=== PATIENT | female | born 1990 | race Caucasian/White ===

== ENCOUNTER 2023-07-21 09:44 | Outpatient (CLI) | payer OTHER, SELFPAY | END 2023-07-21 09:45 | disposition home or self-care (01) | LOC: NFLDREF 07-25 11:32 | PROVIDERS: Visit Provider Physician Assistant | DX: Z31.69 Encounter for other general counseling and advice on procreation (principal) | CPT/HCPCS: 82670; 83001; 83002; 84146; 84443 ==

== ENCOUNTER 2023-07-26 08:53 | Outpatient (CLI) | payer OTHER, SELFPAY ==
--- NOTE | 2023-07-26 09:15 | CRLHL7_ITS ---
For Patients: As a result of the Century Cures Act, medical imaging exams and procedure reports are released immediately into your electronic medical record. You may view this report before your referring provider. If you have questions, please contact your health care provider. Indication: INFERTILITY Technique: Hysterosalpingogram. Fluoroscopic time 31 seconds. IMPRESSION: Normal patency of the endometrial canal and fallopian tubes with spillage into the peritoneal cavity. Normal exam. Dictated by Chip Barba MD @ 07/26/2023 10:05:45 AM (Electronically Signed)
--- NOTE | 2023-07-26 10:45 | W.PM.GYNPROC ---
Procedure Note Time Seen by Provider: 09:45 Date of procedure: 07/26/23 Pre-op diagnosis: Primary infertility Post-op diagnosis: same Procedure: Hysterosalpingogram Anesthesia: none Complications: None Surgeon: April Pimentel MD Estimated blood loss (mL): 0 IV fluids (mL): 0 Pathology: none sent Condition: stable Disposition: other (Home ) Procedure Description: DATE: 07/26/2023 PREPROCEDURE DIAGNOSIS: Primary Infertility POSTPROCEDURE DIAGNOSIS: 1. Infertility 2. Patent fallopian tubes bilaterally. Normal endometrial cavity contour NAME OF PROCEDURE: Hysterosalpingogram. ANESTHESIA: None. COMPLICATIONS: None. PROCEDURE: UPT negative. After obtaining verbal consent, the patient was placed in the dorsal lithotomy position on the x-ray table. An open-sided bivalve speculum was introduced into the vagina and the cervix easily visualized. The cervix and vagina were then prepped with Betadine. The anterior lip of the cervix was grasped with a single-tooth tenaculum for traction. Os binder/cervical dilator used: No. A balloon tipped double-lumen catheter was then gently inserted through the cervical opening into the uterine cavity to the level of the fundus. The balloon was insufflated with 3 mL of air. The tenaculum and speculum were removed. The patient was repositioned in the supine position, covered, and the radiologist was called to the room. A hysterosalpingogram was then performed. A total of 20 cc of Optiray 300 water soluble contrast dye was injected through the double-lumen catheter under moderate pressure. There was immediate fill of both fallopian tubes and free spillage of dye on both sides. Balloon was deflated more dye was injected and was immediate fill of the uterine cavity to the cornua. The deflated balloon catheter was removed. The patient tolerated the procedure well, though she did have moderate cramping discomfort during and just after the procedure. She was discharged to home in stable condition and make an appointment with her physician to review all of her lab results and procedure results.
== END 2023-07-26 08:54 | disposition home or self-care (01) ==
LOC: RAD 08:53
PROVIDERS: Visit Provider Obstetrics & Gynecology
DX: Z31.69 Encounter for other general counseling and advice on procreation (principal); N97.9 Female infertility, unspecified
CPT/HCPCS: 58340; 74740; A4649; Q9967

== ENCOUNTER 2023-08-09 16:14 | Outpatient (CLI) | payer OTHER, SELFPAY | END 2023-08-09 16:15 | disposition home or self-care (01) | LOC: NFLDREF 08-15 05:32 | PROVIDERS: Visit Provider Physician Assistant | DX: N97.9 Female infertility, unspecified (principal) | CPT/HCPCS: 84144 ==

== ENCOUNTER 2023-09-17 15:47 | Outpatient (CLI) | payer OTHER, SELFPAY ==
--- NOTE | 2023-09-17 16:00 | CRLHL7_ITS ---
For Patients: As a result of the Century Cures Act, medical imaging exams and procedure reports are released immediately into your electronic medical record. You may view this report before your referring provider. If you have questions, please contact your health care provider. INDICATION: Pro creative management TECHNIQUE: Real-time cruz-scale imaging of the pelvis was performed. FINDINGS: The uterus measures 8.5 x 3.4 x 4.2 centimeters the endometrium measures 8 millimeters. The right ovary measures 2.9 x 1.9 x 2.3 centimeters left ovary measures 3.7 x 1.9 x 1.5 centimeters dominant follicle in the right ovary measuring 1.5 centimeters. Normal blood flow to both ovaries. Minimal free fluid in the pelvic cul-de-sac. IMPRESSION: Unremarkable pelvic ultrasound. Dominant follicle in the right ovary measures 1.5 centimeters. Dictated by Sofia Hughes MD @ 09/20/2023 6:36:08 AM (Electronically Signed)
== END 2023-09-17 15:48 | disposition home or self-care (01) ==
LOC: US 15:48
PROVIDERS: Visit Provider Physician Assistant
DX: Z31.9 Encounter for procreative management, unspecified (principal); N83.201 Unspecified ovarian cyst, right side
CPT/HCPCS: 76830; 76856

== ENCOUNTER 2024-01-11 10:09 | Outpatient (CLI) | payer OTHER, SELFPAY | END 2024-01-11 10:10 | disposition home or self-care (01) | LOC: NFLDREF 10:10 | PROVIDERS: Visit Provider Registered Nurse | DX: Z34.91 Encounter for supervision of normal pregnancy, unspecified, first trimester (principal); O20.9 Hemorrhage in early pregnancy, unspecified; Z3A.10 10 weeks gestation of pregnancy | CPT/HCPCS: 76817; 87086 ==

== ENCOUNTER 2024-03-28 10:13 | Outpatient (CLI) | payer OTHER, SELFPAY ==
--- NOTE | 2024-03-28 10:15 | CRLHL7_ITS ---
For Patients: As a result of the Century Cures Act, medical imaging exams and procedure reports are released immediately into your electronic medical record. You may view this report before your referring provider. If you have questions, please contact your health care provider. INDICATION: Evaluate anatomy. COMPARISON: 01/11/2024 TECHNIQUE: Real time cruz scale imaging of the fetus was performed as well as color Doppler analysis of the umbilical vessels. FINDINGS: Sonographic imaging demonstrates a single living intrauterine gestation. Fetus demonstrates a regular cardiac rate of 150 beats per minute. Fetus has a vertex position. The placenta lies right posterior without evidence of placenta previa. Amniotic fluid volume appears normal. Single deepest vertical pocket: 4.4 cm. The cervix is closed and measures 3.5 cm in length. The composite ultrasound gestational age is calculated at 21 weeks 6 days with an estimated sonographic due date of 08/02/2024. The estimated weight is 442 grams which lies at the 50th %. The following biometric measurements were obtained: Biparietal diameter: 5.3 cm/22 weeks 1 day 70th% Head circumference: 19.1 cm/21 weeks 2 days 29th% Abdominal circumference: 17.0 cm/22 weeks 0 days 56th% Femur length: 3.6 cm/21 weeks 3 days 33rd% The HC/AC ratio measures: 1.12 range (1.06-1.23) On anatomic survey, there is a normal appearance of the cerebral ventricles, cavum septi pellucidi, cisterna magna and cerebellum. The nose, lips, and facial profile appear normal. The cervical, thoracic and lumbar spine are well visualized and appear normal. There is a normal four-chamber heart view and the left and right ventricular outflow tracts appear normal. The diaphragm and stomach appear normal. The kidneys and bladder also appear normal. There is a normal three-vessel cord and cord insertion site. The four extremities appear normal. IMPRESSION: Normal OB ultrasound exam with concordance of clinical and sonographic dating. No intrinsic abnormalities noted on anatomic survey. Dictated by Chip Barba MD @ 03/28/2024 3:22:05 PM (Electronically Signed)
== END 2024-03-28 10:14 | disposition home or self-care (01) ==
LOC: US 10:14
PROVIDERS: Visit Provider Obstetrics & Gynecology
DX: Z34.92 Encounter for supervision of normal pregnancy, unspecified, second trimester (principal); Z3A.21 21 weeks gestation of pregnancy
CPT/HCPCS: 76805

== ENCOUNTER 2024-05-16 10:40 | Outpatient (CLI) | payer OTHER, SELFPAY | END 2024-05-16 10:41 | disposition home or self-care (01) | LOC: NFLDREF 05-22 06:28 | PROVIDERS: Visit Provider Obstetrics & Gynecology | DX: Z34.93 Encounter for supervision of normal pregnancy, unspecified, third trimester (principal); Z3A.28 28 weeks gestation of pregnancy | CPT/HCPCS: 86592 ==

== ENCOUNTER 2024-07-10 09:30 | Outpatient (CLI) | payer OTHER, SELFPAY | END 2024-07-10 09:31 | disposition home or self-care (01) | LOC: NFLDREF 07-11 13:37 | PROVIDERS: Visit Provider Obstetrics & Gynecology | DX: Z34.01 Encounter for supervision of normal first pregnancy, first trimester (principal) | CPT/HCPCS: 87081; 87653 ==

== ENCOUNTER 2024-08-02 13:44 | Outpatient (CLI) | payer OTHER, SELFPAY ==
[2024-08-02 14:12] VITALS: BP 127/89; PULSE 72; TEMP 36.6
[2024-08-02 14:13] VITALS: PULSE 73; O2SAT 98
[2024-08-02 14:18] VITALS: PULSE 72; O2SAT 98
[2024-08-02 14:23] VITALS: PULSE 70; O2SAT 99
[2024-08-02 14:28] VITALS: PULSE 68; O2SAT 99
[2024-08-02] MEDS: hydrOXYzine pamoate 25 MG CAPSULE 100 MG PO (15:50)
[2024-08-02] MEDS: MORPHINE 10 MG/ML inj IM (15:50)
--- NOTE | 2024-08-02 16:00 | PC.OBNST ---
NST Note NST Note Start: 08/02/24 13:44 Freq: ONCE Status: Active Protocol: Document 08/02/24 15:58 [facility] [place]Rec[place] 08/02/24 16:00 [facility] [id number][place] NST Note 1 Para (# of births) 0 EDC 08/04/24 Gestational Age In Weeks & Days 39 Weeks & 5 Days Patient Presented with Complaint(s) of Contractions/cramping Reactive Yes Appropriate for Gestational Age Yes RN SHEELA Ktae Date 08/02/24 Reactive Yes Appropriate for Gestational Age Yes RN Yan RN Date 08/02/24 OB NST charge Yes Complete NST Note via Write Note Yes The provider's electronic signature indicates the NST is reactive/appropriate for gestational age. *Note to provider: If an addendum is required, open the patient's chart and click on the note under the Nurse/Allied Health tab.
== END 2024-08-02 15:58 | disposition home or self-care (01) ==
LOC: OB OUT 13:44 → OB 13:46
PROVIDERS: Visit Provider Obstetrics & Gynecology
DX: O47.1 False labor at or after 37 completed weeks of gestation (principal); Z3A.39 39 weeks gestation of pregnancy
CPT/HCPCS: 59025; G0463; A9270; J2270

== ENCOUNTER 2024-08-02 22:09 | Inpatient (IN) | payer OTHER, SELFPAY ==
[2024-08-02] VITALS (21 sets, daily range): BP systolic 124–171; BP diastolic 86–100; PULSE 70–79; RESP 16; TEMP 36.7; O2SAT 100; BMI 25.7
[2024-08-02] MEDS: LACTATED RINGERS 1000 ML 1,000 ML 925 ML IV (22:49)
[2024-08-02 23:19] LABS: Basophils Percent Auto 0.2 % (0.0-3.0); Eosinophils Percent Auto 0.1 % (0.0-7.0); Hematocrit 41.6 % (33.0-51.0); Hemoglobin* 14.2 gm/dL (12.0-16.0); Lymphocytes Percent Auto 11.1 % (20-44); Mean Corpuscular HGB Conc 34 gm/dL (32-36); Mean Corpuscular Hemoglobin 31 pg (26-34); Mean Corpuscular Volume 90 fL (80-100); Monocytes Percent Auto 3.8 % (0.0-11.0); Neutrophils Percent Auto 82.8 % (42.0-72.0); Platelet Count* 184 K/uL (140-440); RDW Coefficient of Variation % 12.4 % (11.5-15.5); Red Blood Count 4.62 m/uL (4.00-5.20); White Blood Count* 15.36 K/uL (4.50-11.00)
[2024-08-02 23:28] LABS: Slide Review Reflex No
[2024-08-02] MEDS: ROPIVACAINE 0.2% 100 ml 100 ML 12 MG EPIDURAL (23:28)
[2024-08-02] MEDS: BUPIVACAINE 0.25% PF 10 ML 10 ML ML EPIDURAL (23:28)
--- NOTE | 2024-08-02 23:36 | PM.ANBPRC ---
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 Nonsmoker. Minimal alcohol use. No concerns for safety or abuse What is your current living situation?: I presently have a place to live Problems where you live: no known problems In the past 12 months, utilities in danger of being shut off: no In the past 12 mos, have been you worried that your food would run out before you had money to buy more?: never true In the past 12 mos, the food you bought just didn't last and you didn't have money to buy more?: never true Smoking Status: Never smoker How often does anyone, including family, friends and others, physically hurt you: never How often does anyone, including family, friends and others, insult or talk down to you: never How often does anyone, including family, friends and others, threaten you with harm: never How often does anyone, including family, friends and others, scream or curse at you: never Meds Home Medications and Allergies Home Medications ?Medication ?Instructions ?Recorded ?Confirmed ?Type docosahexaenoic acid 200 mg 200 mg PO DAILY 09/13/23 08/02/24 History capsule ( DHA) calcium 600 mg-D3 20 mcg-magnesium 1 tab PO DAILY 01/11/24 08/02/24 History 50 [id number]-[id number]-kg-boron tablet (Calcium 600-D3 Plus (mag-zinc)) Allergies Allergy/AdvReac Type Severity Reaction Status Date / Time No Known Drug Allergies Allergy Verified 08/02/24 14:08 Results Labs Labs: Laboratory Results - last 24 hr 08/02/24 22:45 WBC 15.36 H RBC 4.62 Hgb 14.2 Hct 41.6 MCV 90 MCH 31 MCHC 34 RDW Coeff of Maurice 12.4 Plt Count 184 Neut % (Auto) 82.8 H Lymph % (Auto) 11.1 L [place] % (Auto) 3.8 Eos % (Auto) 0.1 Baso % (Auto) 0.2 Neut # (Auto) 12.70 H Lymph # (Auto) 1.70 [place] # (Auto) 0.60 Eos # (Auto) 0.00 Baso # (Auto) 0.00 Abs Immat Gran (auto) 0.30 Imm/Tot Granulo (auto) 2.0 Vital Signs Vital Signs: Last Vital Signs Temp 98.1 F 08/02/24 22:50 Pulse 72 08/02/24 23:35 Resp 16 08/02/24 22:50 BP 140/94 H 08/02/24 23:35 Pulse Ox 100 08/02/24 23:25 Weight: 74.525 kg Height: 170.18 cm Anesthesia Procedures Epidural Insertion Patient Location: OB Start Time: :00 Stop Time: 23:36 Start Date: 08/02/24 Stop Date: 08/02/24 Reason for Block: procedure for pain Patient Position: sitting Performed By: Ravin Peacock Preanesthetic Checklist: IV checked, risks and benefits discussed, monitors and equipment checked, pre-op evaluation, timeout performed and anesthesia consent Prep: chlorhexidine gluconate Monitoring: blood pressure monitoring, continuous pulse oximetry and heart rate Approach: midline Vertebral Space: lumbar (1-5) Epidural Technique: RAJESH saline Needle Type: Tuohy needle Injection Technique: continuous catheter Needle gauge: 17 Needle Length (cm): 10 cm Needle Insertion Depth (cm): 7 Catheter Gauge: 19 Catheter Type: multi-orifice Catheter at skin depth (cm): 13 Test Dose Result: negative and lidocaine 1.5% with epinephrine 1 to 200,000
--- NOTE | 2024-08-02 23:37 | W.PM.LDBA ---
Subjective History of Present Illness Date Seen: 08/02/24 Narrative: Patient is being admitted to Labor and Delivery for labor. She is a 33 year old at 39 5/7 weeks gestation. Her full history and physical was dictated by Dr. Cobos on 07/16/24. Please see this for details. She presented earlier today with contractions but with cervix dilated to 2.5 cm at time of discharge. Upon her return, her cervical exam was 6.5 / 100 /0 station per RN. Also, she has had persistently elevated BPs since admission. She has had one in the severe range, with repeat mildly elevated. Specific Issues/Plans G 1 P 0 Spouse: Raudel. Baby: boy! # Unexplained infertility, primary. Conceived with 1st round of clomid/intrauterine insemination. - NIPT low risk, male! # umbilical hernia - 1cm, nontender, reducible Covid: Vaccinated and boosted. Not up-to-date with booster. Recommended. Declines 07/16/24 Flu: 06/12/2024 Tdap:05/29/24 RSV:06/12/2024 GBS negative H&P 07/16 by Chandrika Labs: Blood type O positive, antibody screen negative, hemoglobin 14.6, platelets 272, rubella 7.81, immune, varicella 1122, immune, chlamydia and gonorrhea both negative, hepatitis-B core antibody nonreactive, hepatitis-B surface antigen nonreactive, hepatitis-C antibody nonreactive, HIV nonreactive, RPR nonreactive, TSH 1.17 Ultrasound: Performed 12/13/23 at 6 weeks 3 days: single viable IUP with appropriate growth and positive cardiac activity visualized. EDC 08/04/2024. - FAS on 03/28: Normal anatomy. EFW at 50%ile - BPD 70%, HC 29%, AC 56%, FL 33%. Cervix 3.45cm, SDP 4.4cm, no previa. OB - Problem Based A/P Additional Plan (1) Gestational hypertension: Problem details: With severe features based on transaminitis and creatinine of 1.1 Status: Acute Plan: Diagnosed during active labor. Begin magnesium for seizure prophylaxis HELLP labs q.6 hours Strict in's and out's 2 L p.o. fluid restriction per 24 hours (2) : Status: Acute Plan: Active labor Category I tracing GBS negative Plan Expectant management of labor. Repeat exam 2 h; Pitocin if not at complete dilation by that time Anticipate . Continuous monitoring with epidural and severe gestational hypertension / preeclampsia Delivery/Labor/Induction Plan Plan: expectant management OB Result Labs Labs: Hemoglobin 14.2, platelets 184 AST 86, ALT 98 BUN 14, creatinine 1.1 Labs GBS Status: negative OB Exam Physical Exam Vital signs: Temp Pulse Resp BP Pulse Ox 98.1 F 72 16 140/94 H 100 08/02/24 22:50 08/02/24 23:35 08/02/24 22:50 08/02/24 23:35 08/02/24 23:25 Narrative: Physical exam: General: No acute distress Psych: Alert and oriented x3, full affect HEENT: Normocephalic, atraumatic Heart: Regular rate and rhythm, no murmur rub or gallop Lungs: Clear to auscultation bilaterally Abdomen: Soft, nontender, gravid, cephalic lie Lower extremities: No edema or erythema Pelvic exam: 6.5 / 100 / 0 per RN tracing: Baseline 135 / accels to 150s / no decels / moderate variability.
[2024-08-02 23:44] LABS: Aspartate Amino Transferase* 86 U/L (12-35); Creatinine* 1.1 mg/dL (0.5-1.5); Est. Creatinine Clearance* 72.06; Estimated Glomerular Filt Rate 69 ml/min
[2024-08-02 23:45] LABS: Alanine Aminotransferase* 98 U/L (4-35); Blood Urea Nitrogen* 14 mg/dL (5-24)
[2024-08-02] MEDS: MAGNESIUM IV 4 GM/100 ML PIGGYBACK IVPB (23:57)
[2024-08-03] VITALS (47 sets, daily range): BP systolic 107–165; BP diastolic 66–95; PULSE 68–133; RESP 14–20; TEMP 36.4–37.1; O2SAT 94–100
[2024-08-03] MEDS: MAGNESIUM Infusion 40 GM/1,000 ML IV.SOLN IVPB (00:30)
[2024-08-03] MEDS: ONDANSETRON 2 MG/ML inj 4 MG IV (00:54)
[2024-08-03 01:03] LABS: Total Protein Urine 12 mg/dL
[2024-08-03 01:04] LABS: Creatinine Urine 58.7 mg/dL
[2024-08-03] MEDS: OXYTOCIN 30 unit/500 ML in NS 30 UNIT/500 ML BAG 300 UNIT IVPB (04:22)
[2024-08-03] MEDS: LIDOCAINE 1 % PF 30 ML INJECTION (04:27)
--- NOTE | 2024-08-03 04:45 | W.PM.LDBA ---
Subjective History of Present Illness Date Seen: 08/03/24 Narrative: Patient is being admitted to Labor and Delivery for active labor. She is a 33 year old at 39 weeks, 5 days gestation. She came in earlier today with contractions and her cervix is found to be 2.5 cm dilated at that time. Of note, her blood pressures are newly elevated at time of admission. She denies headache, visual changes, right upper quadrant pain. Her full history and physical was dictated by Dr. Ramirez on 07/16/2024. Please see this for details. Specific Issues/Plans G 1 P 0 Spouse: Raudel. Baby: boy! # Unexplained infertility, primary. Conceived with 1st round of clomid/intrauterine insemination. - NIPT low risk, male! # umbilical hernia - 1cm, nontender, reducible Covid: Vaccinated and boosted. Not up-to-date with booster. Recommended. Declines 07/16/24 Flu: 06/12/2024 Tdap:05/29/24 RSV:06/12/2024 GBS negative H&P 07/16 by Chandrika Labs: Blood type O positive, antibody screen negative, hemoglobin 14.6, platelets 272, rubella 7.81, immune, varicella 1122, immune, chlamydia and gonorrhea both negative, hepatitis-B core antibody nonreactive, hepatitis-B surface antigen nonreactive, hepatitis-C antibody nonreactive, HIV nonreactive, RPR nonreactive, TSH 1.17 Ultrasound: Performed 12/13/23 at 6 weeks 3 days: single viable IUP with appropriate growth and positive cardiac activity visualized. EDC 08/04/2024. - FAS on 03/28: Normal anatomy. EFW at 50%ile - BPD 70%, HC 29%, AC 56%, FL 33%. Cervix 3.45cm, SDP 4.4cm, no previa. OB - Problem Based A/P Additional Plan (1) Gestational hypertension: Problem details: With severe features based on transaminitis and creatinine of 1.1 Status: Acute Plan: Begin magnesium sulfate for seizure prophylaxis, to continue for 24 hours . HELLP labs every 6 hours, to include magnesium level given her mild renal insufficiency. Limit p.o. fluids to 2 L a day. Strict in's and out's. (2) : Status: Acute Plan: Active labor at term. Category 1 tracing. GBS negative. Plan Expectant management. If no change in cervical dilation in 2 hours, began Pitocin augmentation. Continuous monitoring. Delivery/Labor/Induction Plan Plan: expectant management OB Result Labs Labs: CBC showing hemoglobin 14.4, platelets 184 AST 86, ALT 98 BUN 14, creatinine 1.1 Labs GBS Status: negative OB Exam Physical Exam Vital signs: Temp Pulse Resp BP Pulse Ox 98.7 F 96 16 139/85 100 08/03/24 03:49 08/03/24 04:40 08/03/24 00:56 08/03/24 04:40 08/03/24 00:54 Narrative: Physical exam: General: No acute distress; has already received an epidural Psych: Alert and oriented x3, full affect HEENT: Normocephalic, atraumatic Heart: Regular rate and rhythm, no murmur rub or gallop Lungs: Clear to auscultation bilaterally Abdomen: Soft, nontender, gravid, cephalic lie Lower extremities: No edema or erythema Pelvic exam: Cervical exam per RN is 6.5 cm, 100%, 0 station with intact bag of water AROM for moderate meconium-stained fluid. tracing: Baseline 130, accelerations to 150s, no decelerations, moderate variability
--- NOTE | 2024-08-03 04:50 | W.PM.VAGD1_ITS ---
Procedure Delivery date: 08/03/24 Procedure Done: [employer] Procedure Details: The patient is a 33 year-old G 1 now P 1-0-0-1 woman admitted on 08/02/2024 at 39 Weeks, 5 Days gestation for active labor.? Cervical exam on admission was 6.5 cm/100 % effaced/0 station with membranes intact in vertex presentation.? Contractions were regular.? heart rate demonstrated baseline 130 bpm with moderate variability, positive accelerations, no decelerations; a category 1 tracing.? AROM occurred at 11:56 p.m. on 08/02/2024 with meconium-stained fluid. ? Labor Analgesia:? Epidural ? Pitocin:? No ? Labor onset:? 10:05 p.m. on 08/02/2024 ? Pushing:? 2:52 a.m. on 08/03/2024 ? heart tones during second stage were notable for a decrease in baseline to the 110s and deceleration so at time of . ? At 4:19 a.m. a viable male delivered in vertex DENITA presentation over int act perineum via spontaneous vaginal delivery.? Infant's anterior shoulder did deliver with gentle guidance of the head downward, but there was continued difficulty in delivery of both arms due to their position, requiring movement of baby's body downward by guiding beneath the axilla. was placed on maternal abdomen immediately after delivery.? Cord was clamped and cut after approximately 30 seconds.? Nose and mouth were bulb suctioned.? Infant weight pending.? 7 at 1 minute and 9 at 5 minutes.? Shoulder dystocia: No, but there was difficulty bringing the shoulders through the introitus due to position of the arms.? Nuchal cord: No. ? Placenta delivered spontaneously and complete at 4:33 a.m. with a 3 vessel cord. ? Mother and were stable after delivery. ? Lacerations:? Very small second-degree vaginal laceration and left anterior labial laceration, repaired with 2-0 and 3-0 Vicryl, respectively. ? Blood loss: 350 mL. Blood loss measurement type: QBL ? Sponge and needles counts are correct.
[2024-08-03] MEDS: NIFEdipine 30 MG TAB.ER.24 PO ×2 (05:04→09:34)
[2024-08-03] MEDS: IBUPROFEN 600 MG TABLET PO ×3 (05:10→17:07)
[2024-08-03 05:21] LABS: Hematocrit 40.9 % (33.0-51.0); Hemoglobin* 13.9 gm/dL (12.0-16.0); Mean Corpuscular HGB Conc 34 gm/dL (32-36); Mean Corpuscular Hemoglobin 31 pg (26-34); Mean Corpuscular Volume 91 fL (80-100); Platelet Count* 183 K/uL (140-440); Red Blood Count 4.48 m/uL (4.00-5.20); White Blood Count* 23.01 K/uL (4.50-11.00)
[2024-08-03 05:25] LABS: Slide Review Reflex No
[2024-08-03 05:40] LABS: Alanine Aminotransferase* 120 U/L (4-35); Aspartate Amino Transferase* 128 U/L (12-35); Blood Urea Nitrogen* 13 mg/dL (5-24); Creatinine* 1.1 mg/dL (0.5-1.5); Est. Creatinine Clearance* 72.06; Estimated Glomerular Filt Rate 69 ml/min
[2024-08-03 05:47] LABS: Magnesium* 5.3 mg/dL (1.5-2.6)
[2024-08-03] MEDS: SODIUM CHLORIDE 0.9 % (FLUSH) 10 ML SYRINGE IVF ×2 (08:10→17:11)
[2024-08-03] MEDS: DOCUSATE SODIUM 100 MG CAPSULE PO (09:34)
[2024-08-03 11:33] LABS: Hematocrit 37.2 % (33.0-51.0); Hemoglobin* 12.5 gm/dL (12.0-16.0); Mean Corpuscular HGB Conc 34 gm/dL (32-36); Mean Corpuscular Hemoglobin 31 pg (26-34); Mean Corpuscular Volume 91 fL (80-100); Platelet Count* 159 K/uL (140-440); Red Blood Count 4.07 m/uL (4.00-5.20)
[2024-08-03 11:35] LABS: Slide Review Reflex No; White Blood Count* 27.29 K/uL (4.50-11.00)
[2024-08-03 11:52] LABS: Alanine Aminotransferase* 128 U/L (4-35); Aspartate Amino Transferase* 127 U/L (12-35); Blood Urea Nitrogen* 13 mg/dL (5-24); Creatinine* 1.1 mg/dL (0.5-1.5); Est. Creatinine Clearance* 72.06; Estimated Glomerular Filt Rate 69 ml/min
[2024-08-03 11:55] LABS: Magnesium* 6.3 mg/dL (1.5-2.6)
--- NOTE | 2024-08-03 12:30 | PM.ANPOST ---
Post Anesthesia Note Post Anesthesia Note Patient seen: Inpatient Respiratory Status: adequate Cardiovascular Status: adequate Mental Status: baseline Pain: adequate Temp: baseline Anesthetic awareness: N/A Complications: none Follow care: none
[2024-08-03 17:35] LABS: Hematocrit 34.9 % (33.0-51.0); Hemoglobin* 11.7 gm/dL (12.0-16.0); Mean Corpuscular HGB Conc 34 gm/dL (32-36); Mean Corpuscular Hemoglobin 31 pg (26-34); Mean Corpuscular Volume 93 fL (80-100); Platelet Count* 153 K/uL (140-440); Red Blood Count 3.77 m/uL (4.00-5.20); White Blood Count* 20.54 K/uL (4.50-11.00)
[2024-08-03 17:37] LABS: Slide Review Reflex No
[2024-08-03 17:52] LABS: Creatinine* 1.3 mg/dL (0.5-1.5); Est. Creatinine Clearance* 60.97; Estimated Glomerular Filt Rate 56 ml/min
[2024-08-03 17:53] LABS: Alanine Aminotransferase* 108 U/L (4-35); Aspartate Amino Transferase* 92 U/L (12-35); Blood Urea Nitrogen* 14 mg/dL (5-24)
[2024-08-03] MEDS: ACETAMINOPHEN 500 MG TABLET 1000 MG PO (20:08)
[2024-08-03 23:39] LABS: Hematocrit 38.1 % (33.0-51.0); Hemoglobin* 12.7 gm/dL (12.0-16.0); Mean Corpuscular HGB Conc 33 gm/dL (32-36); Mean Corpuscular Hemoglobin 31 pg (26-34); Mean Corpuscular Volume 94 fL (80-100); Platelet Count* 169 K/uL (140-440); Red Blood Count 4.07 m/uL (4.00-5.20)
[2024-08-03 23:41] LABS: Slide Review Reflex No
[2024-08-03 23:54] LABS: Aspartate Amino Transferase* 90 U/L (12-35); Creatinine* 1.3 mg/dL (0.5-1.5); Est. Creatinine Clearance* 60.97; Estimated Glomerular Filt Rate 56 ml/min
[2024-08-03 23:55] LABS: Alanine Aminotransferase* 103 U/L (4-35); Blood Urea Nitrogen* 15 mg/dL (5-24)
[2024-08-04] VITALS (7 sets, daily range): BP systolic 109–121; BP diastolic 71–85; PULSE 77–90; RESP 16–18; TEMP 36.4–36.7; O2SAT 96–98
[2024-08-04 00:04] LABS: Magnesium* 6.5 mg/dL (1.5-2.6)
[2024-08-04] MEDS: ACETAMINOPHEN 500 MG TABLET 1000 MG PO ×3 (05:25→17:34)
[2024-08-04 05:41] LABS: Hemoglobin* 11.9 gm/dL (12.0-16.0); Mean Corpuscular HGB Conc 33 gm/dL (32-36); Mean Corpuscular Hemoglobin 31 pg (26-34); Mean Corpuscular Volume 93 fL (80-100); Platelet Count* 159 K/uL (140-440)
[2024-08-04 05:44] LABS: Slide Review Reflex No
[2024-08-04 06:02] LABS: Creatinine* 1.3 mg/dL (0.5-1.5); Est. Creatinine Clearance* 60.97; Estimated Glomerular Filt Rate 56 ml/min
[2024-08-04 06:03] LABS: Alanine Aminotransferase* 90 U/L (4-35); Aspartate Amino Transferase* 79 U/L (12-35); Blood Urea Nitrogen* 15 mg/dL (5-24)
[2024-08-04 06:07] LABS: Hematocrit 36.1 % (33.0-51.0); Red Blood Count 3.87 m/uL (4.00-5.20); White Blood Count* 14.14 K/uL (4.50-11.00)
--- NOTE | 2024-08-04 08:01 | PM.OBPNVD1 ---
OB - PN:Subj Subjective Time Seen by Provider: 08:15 Date Seen: 08/04/24 Patient comments OB post-: pain well controlled, perineal pain, tolerating diet and flatus present infant status: and doing well [place] feeding status: exclusively Narrative: Deni has no concerns this morning. She feels much better off of magnesium. She has been with some difficulty with latching and would like to see the loss prevention consultant today. Planning on staying in the hospital until tomorrow to verify her blood pressures remain well controlled. Another set of preeclampsia labs were ordered for tomorrow morning. OB - PN: Obj Exam Physical Exam: Vital signs: Temp Pulse Resp BP Pulse Ox O2 Del Method 98.1 F 90 16 109/71 97 Room Air 08/04/24 00:31 08/04/24 05:28 08/04/24 05:28 08/04/24 05:28 08/04/24 05:28 08/04/24 05:28 Narrative: GENERAL APPEARANCE: Pleasant, , well-groomed woman in no acute distress. VITAL SIGNS: as noted in nursing notes HEAD: Normocephalic, atraumatic. LUNGS: Clear to auscultation bilaterally without wheezes, rales or rhonchi. HEART: Regular rate and rhythm with normal S1 and S2. No gallop, rub or murmur. ABDOMEN: Soft, nontender, nondistended, with normal bowels sounds throughout. FUNDUS: Firm at 1 cm below the umbilicus. EXTREMITIES: No cyanosis, clubbing. Trace edema in bilateral lower extremities to the ankle. No varicosities. NEUROLOGIC: Normal gait and balance. Normal deep tendon reflexes at bilateral patella 2+/2, equal without clonus. PSYCHIATRIC: alert and oriented x3. Normal speech pattern, eye contact and affect. SKIN: Warm, dry, and well perfused. Good turgor. No lesions, nodules or rashes. OB - PN: Obj Data Labs Labs: Laboratory Results - last 24 hr 08/03/24 08/03/24 08/03/24 11:24 17:18 23:25 WBC 27.29 H* 20.54 H 19.00 H RBC 4.07 3.77 L 4.07 Hgb 12.5 11.7 L 12.7 Hct 37.2 34.9 38.1 MCV 91 93 94 MCH 31 31 31 MCHC 34 34 33 Plt Count 159 153 169 BUN 13 14 15 Creatinine 1.1 1.3 1.3 Estimated Creat Clear 72.06 60.97 60.97 Estimated GFR 69 56 56 Magnesium 6.3 H* 6.5 H* AST 127 H 92 H 90 H ALT 128 H 108 H 103 H 08/04/24 05:14 WBC 14.14 H RBC 3.87 L Hgb 11.9 L Hct 36.1 MCV 93 MCH 31 MCHC 33 Plt Count 159 BUN 15 Creatinine 1.3 Estimated Creat Clear 60.97 Estimated GFR 56 Magnesium AST 79 H ALT 90 H OB - PN: A/P Delivery Assessment and Plan (1) : Status: Acute (2) Severe preeclampsia: Problem details: Transaminitis and creatinine of 1.1-1.3 Status: Acute Assessment and Plan: 1. Continue nifedipine ER 30 mg daily. 2. Recheck another set of preeclampsia labs tomorrow morning. 3. Planning on discharge home tomorrow. 4. Patient would like to see the loss prevention consultant today.
[2024-08-04] MEDS: NIFEdipine 30 MG TAB.ER.24 PO (08:59)
[2024-08-04] MEDS: DOCUSATE SODIUM 100 MG CAPSULE PO (08:59)
[2024-08-05 02:19] VITALS: BP 116/82; PULSE 70; RESP 16; TEMP 36.8; O2SAT 98
[2024-08-05 05:14] LABS: Hematocrit 36.2 % (33.0-51.0); Mean Corpuscular HGB Conc 33 gm/dL (32-36); Mean Corpuscular Hemoglobin 31 pg (26-34); Mean Corpuscular Volume 94 fL (80-100); Platelet Count* 205 K/uL (140-440); Red Blood Count 3.87 m/uL (4.00-5.20); White Blood Count* 12.61 K/uL (4.50-11.00)
[2024-08-05 05:17] LABS: Slide Review Reflex No
[2024-08-05 05:31] LABS: Alanine Aminotransferase* 66 U/L (4-35); Aspartate Amino Transferase* 49 U/L (12-35); Blood Urea Nitrogen* 13 mg/dL (5-24); Creatinine* 0.9 mg/dL (0.5-1.5); Est. Creatinine Clearance* 88.07; Estimated Glomerular Filt Rate 88 ml/min
[2024-08-05] MEDS: DOCUSATE SODIUM 100 MG CAPSULE PO (07:48)
[2024-08-05] MEDS: NIFEdipine 30 MG TAB.ER.24 PO (07:48)
[2024-08-05] MEDS: ACETAMINOPHEN 500 MG TABLET 1000 MG PO (07:48)
[2024-08-05 07:57] VITALS: BP 127/85; PULSE 68; RESP 16; TEMP 36.4; O2SAT 97
--- NOTE | 2024-08-05 08:47 | PM.OBDSVD1 ---
DS: Providers Provider Date Seen: 08/05/24 Date of admission: 08/02/24 22:09 Primary care physician: Not a Local Provider Admitting Clinician: Mary Agosto MD Attending Physician on discharge: John Mccain MD Date of Discharge: 08/05/24 DS: Diagnosis Discharge Diagnosis (1) Severe preeclampsia: Status: Acute Problem details: Transaminitis and creatinine of 1.1-1.3 (2) Spontaneous vaginal delivery: Status: Acute Exam Narrative: Exam Narrative: VITAL SIGNS: As noted above. GENERAL APPEARANCE: Alert, cooperative female in no acute distress. MOOD & AFFECT: Normal. HEART: Regular rate and rhythm without murmurs. LUNGS: Lungs are clear to auscultation bilaterally. No crackles, wheezes, or rhonchi. ABDOMEN: Soft, non-distended and nontender. Uterus well contracted at umbilicus. : Normal lochia. EXTREMITIES: Nonedematous. Well perfused. Nontender. NEURO: Intact. Const: Vital Signs, click to edit/add: Vital Signs - 24 hr 08/04/24 11:31 08/04/24 15:33 08/04/24 22:38 Temperature 98.1 F 98.0 F Pulse Rate [Pulse Oximeter] 78 78 77 Respiratory Rate 16 16 16 Blood Pressure [Le ft Arm] 116/79 110/75 110/76 Pulse Oximetry 98 97 96 Oxygen Delivery Me thod Room Air Room Air Room Air 08/05/24 02:19 08/05/24 07:57 Temperature 98.2 F 97.5 F L Pulse Rate [Pulse Oximeter] 70 68 Respiratory Rate 16 16 Blood Pressure [Le ft Arm] 116/82 127/85 Pulse Oximetry 98 97 Oxygen Delivery Me thod Room Air Room Air OB - DS: Summary Hospital Course Hospital Course: The patient is a 33 year old G 1 P 1 at 395/7 weeks gestation that was admitted to the Center on 08/02/24 admitted in labor for delivery. Patient was found with elevated blood pressures as well as evidence of preeclampsia with severe features due to transaminitis and elevated creatinine. She had an uncomplicated vaginal delivery. She delivered a viable male infant. She is breast feeding. the patient has done well. Completed 24 hours of magnesium sulfate infusion for seizure prophylaxis after delivery. Right now, has completed 24 hours of observation after discontinuation of magnesium sulfate infusion. Patient was started on antihypertensive medication with nifedipine 30 mg daily. Blood pressures have remained at target. Today there is no evidence of headaches, vision changes or pain in her upper abdomen. Peripartum Data Infant delivery method: Vaginal Laceration description: Perineal - 2nd Degree complications: none Mckenzie Gender: Male Infant Discharge Plan: Home Status at Discharge Functional status at discharge: independent ambulation Overall status at discharge: patient is progressing back to baseline Time Spent with Patient Time attestation: Total time spent providing and/or coordinating discharge services: Time spent: Less than 30 minutes Discharge Plan Discharge Disposition: Home, Self-Care Date of Admission: 08/02/24 22:09 Attending Provider on Discharge: Kenia Mccain Primary Care Provider: Provider,Not a Local Condition: Stable Anticipated Discharge Date/Time: 08/05/24 Discharge Medications: New nifedipine 30 mg Tablet Extended Release 24hr 30 mg PO DAILY Qty: 30 0RF acetaminophen 500 mg Tablet 1,000 mg PO Q6H PRNQty: 30 0RF Continued DHA 200 mg capsule 200 mg PO DAILY Ca-D3-mag [id number]-bor [Calcium 600-D3 Plus (mag-zinc)] 600 mg calcium- 20 mcg-50 mg tablet 1 tab PO DAILY Discharge Orders: Discharge Order (Routine); Ordered 08/05/24 Ordered By: Kenia Mccain Patient Education: OB Vaginal/Breast Feeding Additional Instructions: Measure blood pressures at home twice a day. Notify clinic if there are blood pressures persistently more than 150 systolics, 100s diastolics or if any symptoms such as headaches that do not go away with pain medication, visual changes such as dark spots in vision, pain in the upper abdomen-that moves towards the upper right side. Notify clinic if there are blood pressures persistently less than 90 seconds systolics, 50s diastolics or if there is any associated symptoms such as lightheadedness, dizziness, shortness of breath, heart palpitations. Follow-up in clinic in 3-5 days after discharge for blood pressure check, review of antihypertensive medication regimen. Follow-up in clinic in 2 weeks for incision check and follow-up. Follow-up in 6 weeks in clinic for regular visit. Activity Level: Activity as Tolerated Activity Detail: Nothing vaginally for 6 weeks. Discharge Diet: Regular Follow Up Appointments: Provider,Not a Local [Primary Care Provider] - Forms: [id number] Info Instructions
[2024-08-06 04:55] LABS: Rapid Plasma Reagin (RPR) Non Reactive (Non Reactive)
== END 2024-08-05 11:18 | disposition home or self-care (01) | DRG 807 ==
LOC: OB OUT 22:09 → OB 22:09
PROVIDERS: Obstetrics & Gynecology; Admitting Provider Obstetrics & Gynecology; Visit Provider Obstetrics & Gynecology
DX: O14.14 Severe pre-eclampsia complicating childbirth (principal); Z37.0 Single live birth; Z3A.39 39 weeks gestation of pregnancy; K42.9 Umbilical hernia without obstruction or gangrene; O70.1 Second degree perineal laceration during delivery; O77.0 Labor and delivery complicated by meconium in amniotic fluid
CPT/HCPCS: 01967; 36415; 82565; 82570; 83735; 84156; 84450; 84460; 84520; 85025; 85027; 86592; 88307; A9270; J0665; J2003; J2371; J2405; J2795; J3475; J7120